=== PATIENT | male | born 1945 | race Caucasian/White ===

== ENCOUNTER 2019-05-06 07:07 | Inpatient (IN) | payer MEDICARE, OTHER ==
[~2019-05-06] VITALS: Ht 182.9 cm; Wt 214.0 kg
--- NOTE | 2019-05-06 07:39 | NUR ---
74 Y/O MALE PRESENTS TO ED WITH C/O CP. PER PT "I'VE HAD CP FOR 5 DAYS WHEN I WAS WALKING. I GOT SOME JAW AND LEFT ARM PAIN. I DON'T HAVE ANY JAW PAIN NOW. I GET CP WHEN I EXERCISE. I STILL HAVE THE LEFT ARM PAIN. I WAS IN [place] WHEN IT HAPPENED. I DIDN'T WANT TO GO TO THE DR'S THERE BECAUSE MINE ARE HERE. SO I DROVE HOME AND GOT HERE TODAY." NADN. PT PLACED ON CONT PULSE OX,NIBP, CARDIDAC MONITOR. NO C/O N/V/D, TRAUMA, SYNCOPE.
[2019-05-06] MEDS ORDERED: ASPIRIN 81 MG TABLET CHEW PO ONE (08:00)
[2019-05-06] MEDS ORDERED: ASPIRIN 81 MG TABLET CHEW ONE (08:06)
--- NOTE | 2019-05-06 08:10 | NUR ---
PT RESTING ON LOLA READING HIS BOOK. BRIANNA. VSS. MEDICATION ADMINISTERED PER ORDER. NO OTHER NEEDS REQUESTED AT THIS TIME.
[2019-05-06 08:15] LABS: BASOPHILS # (AUTO) 0.04 x10^3/uL (0-0.1); BASOPHILS % (AUTO) 1 % (0-1); EOSINOPHILS # (AUTO) 0.25 x10^3/uL (0-0.4); EOSINOPHILS % (AUTO) 5 % (1-7); LYMPHOCYTES # (AUTO) 1.19 x10^3/uL (1-3.4); LYMPHOCYTES % (AUTO) 24 % (22-44); MD NO; MEAN CORPUSCULAR HEMOGLOBIN 32.4 pg (27.5-34.5); MEAN CORPUSCULAR HGB CONC 33.4 g/dL (33.2-36.2); MEAN CORPUSCULAR VOLUME 96.8 fL (81-97); MEAN PLATELET VOLUME 7.9 fL (7.4-10.4); MONOCYTES # (AUTO) 0.49 x10^3/uL (0.2-0.8); MONOCYTES % (AUTO) 10 % (2-9); NEUTROPHILS % (AUTO) 60 % (42-75); PLATELET COUNT 250 x10^3/uL (130-400); RED BLOOD COUNT 4.24 x10^6/uL (4.38-5.82); RED CELL DISTRIBUTION WIDTH 13.6 % (9.4-14.8)
[2019-05-06 08:25] LABS: ALBUMIN 3.7 g/dL (3.4-5.0); ANION GAP 7 mmol/L (5-15); CALCIUM 9.3 mg/dL (8.5-10.1); CHLORIDE 107 mmol/L (98-107)
[2019-05-06] MEDS ORDERED: NITROGLYCERIN SINGLE TAB 0.4 MG SL ONE (08:27)
[2019-05-06 08:29] LABS: ALANINE AMINOTRANSFERASE 51 U/L (12-78); ALKALINE PHOSPHATASE 63 U/L (45-117); BILIRUBIN,TOTAL 0.7 mg/dL (0.2-1.0); TOTAL PROTEIN 7.4 g/dL (6.4-8.2); TROPONIN I < 0.015 ng/mL (0.000-0.045)
[2019-05-06] MEDS ORDERED: NITROGLYCERIN SINGLE TAB 0.4 MG SL PRN (08:30)
--- NOTE | 2019-05-06 08:35 | NUR ---
ADMINISTERED SL NITRO 0.4MG. PT STATES "I DON'T HAVE ANY PAIN IN MY ARM NOW." NADN. NO NEEDS REQUESTED AT THIS TIME
[2019-05-06] MEDS ORDERED: METO-99 PO (08:43)
[2019-05-06] MEDS ORDERED: ALLO300T PO (08:43)
[2019-05-06] MEDS ORDERED: HYDR25TA6 PO (08:43)
[2019-05-06] MEDS ORDERED: ATOR80TA PO (08:43)
[2019-05-06] MEDS ORDERED: AMLO10TA8 PO (08:43)
[2019-05-06] MEDS ORDERED: ASPI-515 PO (08:43)
[2019-05-06] MEDS ORDERED: LOSA100T14 PO (08:43)
--- NOTE | 2019-05-06 10:14 | NUR ---
PT RESTING ON LOLA READING HIS BOOK. MARIOLAN. NO NEEDS REQUESTED AT THIS TIME.
--- NOTE | 2019-05-06 11:41 | NUR ---
LUNCH TO PT. NADN. NO NEEDS REQUESTED AT THIS TIME. VSS.
--- NOTE | 2019-05-06 12:01 | NUR ---
PT AMBULATORY WITH STEADY GAIT TO BATHROOM. BRIANNA
--- NOTE | 2019-05-06 12:03 | NUR ---
blaze rn report from freddy mckeon
[2019-05-06 12:15] LABS: TROPONIN I < 0.015 ng/mL (0.000-0.045)
--- NOTE | 2019-05-06 12:56 | NUR ---
BEDSIDE REPORT TO DEEDEE BLISS.
--- NOTE | 2019-05-06 12:58 | NUR ---
LATE ENTRY FOR 1245 RECEIVED BEDSIDE REPORT FROM DEEDEE RANGEL.
[2019-05-06] MEDS ORDERED: LABETALOL 5MG/ML, 20ML IVPush PRN (13:00)
[2019-05-06] MEDS ORDERED: DOCUSATE 100 MG CAPSULE PO PRN (13:00)
[2019-05-06] MEDS ORDERED: ACETAMINOPHEN 325 MG TABLET PO PRN (13:00)
[2019-05-06] MEDS ORDERED: TEMAZEPAM 15 MG CAPSULE PO PRN (13:00)
[2019-05-06] MEDS ORDERED: ONDANSETRON 2MG/ML, 2ML IVPush PRN (13:00)
[2019-05-06] MEDS ORDERED: morphine SULFATE 10 MG/ML, 1ML IVPush PRN (13:00)
--- NOTE | 2019-05-06 13:08 | NUR ---
report to DEEDEE Lazar. all questions answered.
[2019-05-06 13:29] VITALS: BP 164/82
[2019-05-06] MEDS: ENOXAPARIN 40 MG/0.4 ML SQ SCH (13:30)
[2019-05-06] MEDS: SODIUM CHLORIDE 0.9% 1,000 ML IV SCH (14:00)
[2019-05-06 19:40] VITALS: BP 167/90
[2019-05-06] MEDS: LOSARTAN 50MG TABLET PO SCH (20:55)
[2019-05-06] MEDS: ATORVASTATIN 80 MG TABLET PO SCH (20:55)
[2019-05-06] MEDS: SODIUM CHLORIDE FLUSH 10ML SYR IVF SCH (20:55)
[2019-05-07 01:31] VITALS: BP 120/73
[2019-05-07] MEDS: SODIUM CHLORIDE FLUSH 10ML SYR IVF SCH ×2 (08:17→21:00)
[2019-05-07] MEDS: LOSARTAN 50MG TABLET PO SCH ×2 (08:18→22:40)
[2019-05-07] MEDS: ASPIRIN 81 MG TABLET EC PO SCH (08:18)
[2019-05-07] MEDS: ALLOPURINOL 100 MG TABLET PO SCH (08:18)
[2019-05-07] MEDS: AMLODIPINE 10 MG TAB PO SCH (08:18)
[2019-05-07] MEDS: HYDROCHLOROTHIAZIDE 25 MG TABLET PO SCH (08:36)
[2019-05-07] MEDS ORDERED: METOPROLOL TARTRATE 100 MG TABLET PO SCH (09:00)
[2019-05-07 09:32] VITALS: BP 131/76
[2019-05-07] MEDS: SODIUM CHLORIDE 0.9% 1,000 ML IV SCH ×4 (09:35→17:43)
[2019-05-07 13:15] LABS: ANION GAP 3 mmol/L (5-15); CALCIUM 9.2 mg/dL (8.5-10.1); CHLORIDE 109 mmol/L (98-107); CREATININE 1.24 mg/dL (0.7-1.3)
[2019-05-07] MEDS ORDERED: TICAGRELOR 90 MG TABLET ONE (14:51)
[2019-05-07] MEDS ORDERED: MIDAZOLAM 1 MG/ML, 5ML ONE (14:51)
[2019-05-07] MEDS ORDERED: VERAPAMIL 2.5 MG/ML, 2ML ONE (14:51)
[2019-05-07] MEDS ORDERED: FENTANYL PF 100 MCG/2ML ONE (14:51)
[2019-05-07] MEDS ORDERED: LIDOCAINE 2%, 20ML ONE (14:52)
[2019-05-07] MEDS ORDERED: BIVALIRUDIN 250 MG ONE (14:52)
[2019-05-07] MEDS ORDERED: HEPARIN 1,000 UNITS/ML, 10ML ONE (14:52)
[2019-05-07] MEDS: ENOXAPARIN 40 MG/0.4 ML SQ SCH (15:30)
[2019-05-07 16:57] VITALS: BP 138/82
[2019-05-07 19:34] VITALS: BP 115/78
[2019-05-07] MEDS: ATORVASTATIN 80 MG TABLET PO SCH (22:40)
[2019-05-08] MEDS: SODIUM CHLORIDE 0.9% 1,000 ML IV SCH ×2 (00:51→03:57)
[2019-05-08 03:20] VITALS: BP 138/83
[2019-05-08] MEDS ORDERED: MAGNESIUM SULFATE PMX 2GM/50ML 50 ML IV ONE (04:00)
[2019-05-08 07:08] LABS: ANION GAP 8 mmol/L (5-15); CALCIUM 8.8 mg/dL (8.5-10.1); CHLORIDE 110 mmol/L (98-107)
[2019-05-08] MEDS ORDERED: METOPROLOL SUCCINATE 100 MG TAB.ER.24H PO SCH ×2 (09:00→21:00)
[2019-05-08 09:23] VITALS: BP 159/76
[2019-05-08] MEDS ORDERED: LOSARTAN 50MG TABLET PO SCH (09:30)
[2019-05-08] MEDS ORDERED: ISOSORBIDE MONONITRATE ER 30 MG TABLET PO SCH (09:30)
[2019-05-08] MEDS: ASPIRIN 81 MG TABLET EC PO SCH (09:47)
[2019-05-08] MEDS: HYDROCHLOROTHIAZIDE 25 MG TABLET PO SCH (09:48)
[2019-05-08] MEDS: AMLODIPINE 10 MG TAB PO SCH (09:50)
[2019-05-08] MEDS: ALLOPURINOL 100 MG TABLET PO SCH (09:51)
[2019-05-08] MEDS: SODIUM CHLORIDE FLUSH 10ML SYR IVF SCH (09:54)
[2019-05-08] MEDS ORDERED: ISOS30TA8 PO (13:48)
[2019-05-08] MEDS ORDERED: LOSA50TA2 PO (13:48)
[2019-05-08] MEDS ORDERED: ALLO100T30 PO (13:48)
[2019-05-08] MEDS ORDERED: METO-95 PO (13:48)
[2019-05-08 14:05] VITALS: BP 121/78
== END 2019-05-08 15:36 | disposition home or self-care (01) | DRG 287 ==
LOC: ED 08:50 → EDIP 09:27 → 5SO 13:21 → DCLOUNGE 05-08 15:17
PROVIDERS: ADMIT Internal Medicine; ATTEND Internal Medicine
PROC: 4A023N7 Measurement of Cardiac Sampling and Pressure, Left Heart, Percutaneous Approach (ICD-10-PCS; principal; 2019-05-07)
PROC: B215YZZ Fluoroscopy of Left Heart using Other Contrast (ICD-10-PCS; 2019-05-07)
PROC: B211YZZ Fluoroscopy of Multiple Coronary Arteries using Other Contrast (ICD-10-PCS; 2019-05-07)
DX: T82.855A Stenosis of coronary artery stent, initial encounter (principal); I25.110 Atherosclerotic heart disease of native coronary artery with unstable angina pectoris; I47.2 Ventricular tachycardia; I10 Essential (primary) hypertension; E78.5 Hyperlipidemia, unspecified; I25.2 Old myocardial infarction; M10.9 Gout, unspecified; N28.9 Disorder of kidney and ureter, unspecified; Z80.42 Family history of malignant neoplasm of prostate; Z80.8 Family history of malignant neoplasm of other organs or systems; Z82.49 Family history of ischemic heart disease and other diseases of the circulatory system; Z85.828 Personal history of other malignant neoplasm of skin; Z87.891 Personal history of nicotine dependence; Z95.5 Presence of coronary angioplasty implant and graft; Y83.8 Other surgical procedures as the cause of abnormal reaction of the patient, or of later complication, without mention of misadventure at the time of the procedure; Y92.89 Other specified places as the place of occurrence of the external cause
CPT/HCPCS: 36415; 71045; 80048; 80053; 83690; 83735; 83880; 84484; 85025; 93005; 93306; 93458; 99156; 99285; C1769; C1894; G0378; J0583; J1644; J2250; J3010; J3475; J7030; Q9967

== ENCOUNTER 2020-02-18 23:53 | Emergency (ER) | payer MEDICARE, OTHER ==
[~2020-02-18] VITALS: Ht 180.3 cm; Wt 96.4 kg
[~2020-02-18 23:53] MED LIST: ALLO100T30 PO; ALLO300T PO; AMLO10TA8 PO; ASPI-515 PO; ATOR80TA PO; HYDR25TA6 PO; ISOS30TA8 PO; LOSA100T14 PO; LOSA50TA2 PO; METO-95 PO; METO-99 PO
[2020-02-19] MEDS ORDERED: ONDANSETRON 2MG/ML, 2ML ONE (00:29)
[2020-02-19] MEDS ORDERED: MORPHINE SULFATE 4 MG/ML, 1ML ONE (00:29)
[2020-02-19] MEDS ORDERED: MORPHINE SULFATE 4 MG/ML, 1ML IVPush PRN (00:30)
[2020-02-19] MEDS ORDERED: ONDANSETRON 2MG/ML, 2ML IVPush ONE (00:30)
--- NOTE | 2020-02-19 00:44 | NUR ---
Pt presents with LLQ pain x 30 min MEDIA JOB TITLES. Pt had episode of emesis at this time. PIV established and pain/nausea medications administered per emar. Pt reports relief following medication. Pt provided with warm blankets per request. Blood and urine sent to lab, pending CT
[2020-02-19 00:50] LABS: BASOPHILS # (AUTO) 0.05 x10^3/uL (0-0.1); BASOPHILS % (AUTO) 1 % (0-1); EOSINOPHILS # (AUTO) 0.19 x10^3/uL (0-0.4); EOSINOPHILS % (AUTO) 2 % (1-7); LYMPHOCYTES # (AUTO) 3.04 x10^3/uL (1-3.4); LYMPHOCYTES % (AUTO) 38 % (22-44); MD NO; MEAN CORPUSCULAR HEMOGLOBIN 32.4 pg (27.5-34.5); MEAN CORPUSCULAR HGB CONC 33.4 g/dL (33.2-36.2); MEAN CORPUSCULAR VOLUME 96.8 fL (81-97); MEAN PLATELET VOLUME 8.1 fL (7.4-10.4); MONOCYTES % (AUTO) 10 % (2-9); NEUTROPHILS % (AUTO) 49 % (42-75); PLATELET COUNT 265 x10^3/uL (130-400); RED BLOOD COUNT 4.41 x10^6/uL (4.38-5.82); RED CELL DISTRIBUTION WIDTH 13.3 % (9.4-14.8)
[2020-02-19 00:52] LABS: MICROSCOPIC INDICATED
[2020-02-19 00:59] LABS: ALANINE AMINOTRANSFERASE 44 U/L (12-78); ALBUMIN 4.1 g/dL (3.4-5.0); ANION GAP 7 mmol/L (5-15); CALCIUM 9.6 mg/dL (8.5-10.1); CHLORIDE 111 mmol/L (98-107); CREATININE 1.84 mg/dL (0.7-1.3)
[2020-02-19 01:01] LABS: ALKALINE PHOSPHATASE 55 U/L (45-117); BILIRUBIN,TOTAL 0.4 mg/dL (0.2-1.0); TOTAL PROTEIN 7.6 g/dL (6.4-8.2)
[2020-02-19 01:44] VITALS: BP 158/76
== END 2020-02-19 02:30 | disposition home or self-care (01) ==
LOC: ED 02-19 01:15
DX: I71.4 Abdominal aortic aneurysm, without rupture (principal); N20.1 Calculus of ureter; R31.9 Hematuria, unspecified; I11.9 Hypertensive heart disease without heart failure; I25.2 Old myocardial infarction; M10.9 Gout, unspecified; Z85.828 Personal history of other malignant neoplasm of skin
CPT/HCPCS: 36415; 74176; 80053; 81001; 85025; 87086; 96374; 96375; 99284; J2270; J2405